=== PATIENT | female | born 1950 | race Caucasian/White ===

== ENCOUNTER 2021-09-19 07:50 | Inpatient (IN) | payer OTHER, SELFPAY ==
[~2021-09-19] VITALS: Ht 157.5 cm; Wt 59.0 kg
[2021-09-19 07:50] VITALS: BP_SYST 169
[2021-09-19] MEDS ORDERED: HYDROcodone/ACETAMIN 10-325 MG TAB PO ONE (08:00)
[2021-09-19] MEDS ORDERED: IPRATROPIUM BROM 0.5 MG/2.5 ML VIAL.NEB (ATROVENT) INH ONE (08:15)
[2021-09-19] MEDS ORDERED: ALBUTEROL SULFATE 0.083% 2.5 MG/3 ML VIAL.NEB INH ONE (08:15)
[2021-09-19 08:36] LABS: BASOPHILS % (AUTO) 0.6 % (0.0-2.0); EOSINOPHILS % (AUTO) 0.1 % (0.0-4.0); HEMOGLOBIN 13.8 g/dL (12.0-16.0); LYMPHOCYTES # (AUTO) 0.9 K/uL (1.0-5.5); LYMPHOCYTES % (AUTO) 12.1 % (20.5-51.5); MEAN CORPUSCULAR HEMOGLOBIN 35 pg (27-31); MEAN CORPUSCULAR HGB CONC 35 % (32-36); MEAN CORPUSCULAR VOLUME 100 fL (79.0-98.0); MONOCYTES # (AUTO) 0.7 K/uL (0.0-1.0); NEUTROPHILS # (AUTO) 5.8 K/uL (1.8-7.7); NEUTROPHILS % (AUTO) 77.2 % (40.0-70.0); PLATELET COUNT (AUTO) 147 K/uL (130-430); RED BLOOD CELL COUNT(AUTO) 4.01 MIL/uL (4.2-6.2); RED CELL DISTRIBUTION WIDTH 15.2 % (9.0-15.0); WHITE BLOOD COUNT (AUTO) 7.5 K/uL (4.8-10.8)
[2021-09-19 08:48] LABS: ANION GAP 14 (5-15); CALCIUM 8.4 mg/dL (8.4-11.0); CHLORIDE 88 mmol/L (98-107); CREATININE 0.61 mg/dL (0.55-1.30); GLUCOSE 89 mg/dL (70-99); POTASSIUM 3.6 mmol/L (3.5-5.1); SODIUM SERUM 123 mmol/L (136-145); UREA NITROGEN, BLOOD 10 mg/dL (8-21)
[2021-09-19 08:50] LABS: INR 0.9 (0.8-1.2); PROTHROMBIN TIME 9.6 SECS (9.5-12.5)
[2021-09-19 08:52] LABS: ALANINE AMINOTRANSFERASE 79 U/L (12-78); ALBUMIN 3.7 g/dL (3.4-4.8); AMYLASE 35 U/L (0-100); ASPARTATE AMINOTRANSFERASE 80 U/L (10-37); C-REACTIVE PROTEIN QUANT 9.3 mg/dL (0-0.5); LIPASE 315 U/L (73-393); TOTAL BILIRUBIN 1.2 mg/dL (0.0-1.0)
[2021-09-19] MEDS ORDERED: CLON0.5T4 PO (10:35)
[2021-09-19] MEDS ORDERED: GABA-529 PO (10:35)
[2021-09-19] MEDS ORDERED: NOR10 PO (10:35)
[2021-09-19 11:20] VITALS: BP_SYST 116
[2021-09-19] MEDS ORDERED: ACETAMINOPHEN 325 MG TABLET PO PRN ×2 (13:00→13:15)
[2021-09-19] MEDS ORDERED: HYDROcodone/ACETAMIN 5-325 MG TAB (NORCO/ VICODIN) PO PRN (13:00)
[2021-09-19] MEDS ORDERED: NALOXONE HCL 0.4 MG/ML AMP (NARCAN) IVP PRN ×2 (13:00)
[2021-09-19] MEDS ORDERED: ONDANSETRON HCL 4 MG/2 ML VIAL IVP PRN (13:00)
[2021-09-19] MEDS ORDERED: HYDROcodone/ACETAMIN 10-325 MG TAB PO PRN (13:00)
[2021-09-19] MEDS ORDERED: MULTIVITAMINS TAB 1 TABLET PO ONE (13:15)
[2021-09-19] MEDS ORDERED: THIAMINE HCL 100 MG TABLET PO ONE (13:15)
[2021-09-19] MEDS ORDERED: FOLIC ACID 1 MG TABLET PO ONE (13:15)
[2021-09-19] MEDS: LORazepam 2 MG/ML VIAL IVP PRN (13:25)
[2021-09-19] MEDS: NORMAL SALINE 5 ML DISP.SYRIN IVF SCH ×2 (13:26→21:47)
[2021-09-19] MEDS ORDERED: NORMAL SALINE 5 ML DISP.SYRIN IVF SCH (14:00)
[2021-09-19] MEDS: IPRATROPIUM/ALBUTEROL SULFATE 3 ML AMPUL.NEB (DUONEB) INH SCH ×3 (15:16→23:10)
[2021-09-19 16:37] VITALS: BP_SYST 130
[2021-09-19] MEDS: GABAPENTIN 100 MG CAPSULE PO SCH (21:46)
[2021-09-19] MEDS: clonazePAM 0.5 MG TABLET PO SCH (21:46)
[2021-09-19 21:52] VITALS: BP_SYST 123
[2021-09-20 01:40] VITALS: BP_SYST 127
[2021-09-20] MEDS: IPRATROPIUM/ALBUTEROL SULFATE 3 ML AMPUL.NEB (DUONEB) INH SCH ×4 (03:00→20:05)
[2021-09-20 03:54] VITALS: BP_SYST 111
[2021-09-20] MEDS: LORazepam 2 MG/ML VIAL IVP PRN ×2 (03:59→13:40)
[2021-09-20] MEDS: NORMAL SALINE 5 ML DISP.SYRIN IVF SCH ×3 (05:58→20:29)
[2021-09-20 06:58] LABS: BASOPHILS % (AUTO) 0.4 % (0.0-2.0); EOSINOPHILS % (AUTO) 0.3 % (0.0-4.0); HEMATOCRIT 37.1 % (36-48); LYMPHOCYTES # (AUTO) 1.1 K/uL (1.0-5.5); MEAN CORPUSCULAR HEMOGLOBIN 35 pg (27-31); MEAN CORPUSCULAR HGB CONC 35 % (32-36); MEAN CORPUSCULAR VOLUME 101 fL (79.0-98.0); MONOCYTES # (AUTO) 0.7 K/uL (0.0-1.0); MONOCYTES % (AUTO) 8.9 % (1.7-9.3); NEUTROPHILS # (AUTO) 5.9 K/uL (1.8-7.7); NEUTROPHILS % (AUTO) 76.4 % (40.0-70.0); PLATELET COUNT (AUTO) 152 K/uL (130-430); RED CELL DISTRIBUTION WIDTH 15.2 % (9.0-15.0); WHITE BLOOD COUNT (AUTO) 7.8 K/uL (4.8-10.8)
[2021-09-20 07:23] LABS: ALANINE AMINOTRANSFERASE 61 U/L (12-78); ALBUMIN 3.5 g/dL (3.4-4.8); ANION GAP 14 (5-15); ASPARTATE AMINOTRANSFERASE 53 U/L (10-37); CALCIUM 9.5 mg/dL (8.4-11.0); CHLORIDE 90 mmol/L (98-107); CREATININE 0.59 mg/dL (0.55-1.30); GLUCOSE 101 mg/dL (70-99); PHOSPHORUS 3.9 mg/dL (2.7-4.5); POTASSIUM 3.1 mmol/L (3.5-5.1); SODIUM SERUM 128 mmol/L (136-145); UREA NITROGEN, BLOOD 12 mg/dL (8-21)
[2021-09-20 08:30] VITALS: BP_SYST 101
[2021-09-20] MEDS: MULTIVITAMINS TAB 1 TABLET PO SCH (09:17)
[2021-09-20] MEDS: FOLIC ACID 1 MG TABLET PO SCH (09:17)
[2021-09-20] MEDS: THIAMINE HCL 100 MG TABLET PO SCH (09:18)
[2021-09-20] MEDS: amLODIPine BESYLATE 10 MG TABLET PO SCH (09:18)
[2021-09-20] MEDS: clonazePAM 0.5 MG TABLET PO SCH ×2 (09:18→20:28)
[2021-09-20 11:28] VITALS: BP_SYST 120
[2021-09-20] MEDS ORDERED: POTASSIUM CHLORIDE 20 MEQ TAB.PRT.SR PO ONE (13:45)
[2021-09-20] MEDS: D5NS 1,000 ML IV SCH ×2 (16:36→23:45)
[2021-09-20 16:45] VITALS: BP_SYST 122
[2021-09-20 20:00] VITALS: BP_SYST 116
[2021-09-20] MEDS: GABAPENTIN 100 MG CAPSULE PO SCH (20:28)
[2021-09-20] MEDS ORDERED: MORPHINE 2 MG/ML INJ. SYRINGE IVP PRN (22:00)
[2021-09-21] VITALS: BP_SYST 120
[2021-09-21] MEDS: IPRATROPIUM/ALBUTEROL SULFATE 3 ML AMPUL.NEB (DUONEB) INH SCH ×7 (00:39→23:52)
[2021-09-21] MEDS: LORazepam 2 MG/ML VIAL IVP PRN ×2 (02:55→16:47)
[2021-09-21] MEDS: NORMAL SALINE 5 ML DISP.SYRIN IVF SCH ×3 (04:57→20:13)
[2021-09-21 06:31] LABS: ANION GAP 12 (5-15); CALCIUM 8.6 mg/dL (8.4-11.0); CHLORIDE 95 mmol/L (98-107); CREATININE 0.56 mg/dL (0.55-1.30); GLUCOSE 115 mg/dL (70-99); POTASSIUM 3.2 mmol/L (3.5-5.1); SODIUM SERUM 131 mmol/L (136-145); UREA NITROGEN, BLOOD 7 mg/dL (8-21)
[2021-09-21 06:36] LABS: BASOPHILS % (AUTO) 0.5 % (0.0-2.0); EOSINOPHILS # (AUTO) 0.1 K/uL (0.0-0.4); EOSINOPHILS % (AUTO) 0.9 % (0.0-4.0); HEMATOCRIT 33.8 % (36-48); HEMOGLOBIN 11.7 g/dL (12.0-16.0); LYMPHOCYTES # (AUTO) 0.9 K/uL (1.0-5.5); LYMPHOCYTES % (AUTO) 10.2 % (20.5-51.5); MEAN CORPUSCULAR HEMOGLOBIN 35 pg (27-31); MEAN CORPUSCULAR HGB CONC 35 % (32-36); MEAN CORPUSCULAR VOLUME 101 fL (79.0-98.0); MONOCYTES % (AUTO) 11.8 % (1.7-9.3); NEUTROPHILS # (AUTO) 6.5 K/uL (1.8-7.7); NEUTROPHILS % (AUTO) 76.6 % (40.0-70.0); PLATELET COUNT (AUTO) 176 K/uL (130-430); RED BLOOD CELL COUNT(AUTO) 3.37 MIL/uL (4.2-6.2); RED CELL DISTRIBUTION WIDTH 14.8 % (9.0-15.0); WHITE BLOOD COUNT (AUTO) 8.4 K/uL (4.8-10.8)
[2021-09-21] MEDS: amLODIPine BESYLATE 10 MG TABLET PO SCH (08:12)
[2021-09-21] MEDS: MULTIVITAMINS TAB 1 TABLET PO SCH (08:12)
[2021-09-21] MEDS: THIAMINE HCL 100 MG TABLET PO SCH (08:12)
[2021-09-21] MEDS: clonazePAM 0.5 MG TABLET PO SCH ×2 (08:12→20:12)
[2021-09-21] MEDS: FOLIC ACID 1 MG TABLET PO SCH (08:13)
[2021-09-21 08:54] VITALS: BP_SYST 121
[2021-09-21 11:50] VITALS: BP_SYST 108
[2021-09-21] MEDS: D5NS 1,000 ML IV SCH ×2 (14:14→19:45)
[2021-09-21] MEDS ORDERED: MULT400T13 PO (15:54)
[2021-09-21] MEDS ORDERED: Thiamine Hcl PO (15:54)
[2021-09-21 16:58] VITALS: BP_SYST 123
[2021-09-21 20:00] VITALS: BP_SYST 120; BP_SYST 148
[2021-09-21] MEDS: GABAPENTIN 100 MG CAPSULE PO SCH (20:12)
[2021-09-22] VITALS (7 sets, daily range): BP systolic 113–131
[2021-09-22] MEDS: IPRATROPIUM/ALBUTEROL SULFATE 3 ML AMPUL.NEB (DUONEB) INH SCH ×6 (03:00→22:45)
[2021-09-22] MEDS: NORMAL SALINE 5 ML DISP.SYRIN IVF SCH ×3 (06:09→21:21)
[2021-09-22] MEDS: D5NS 1,000 ML IV SCH ×2 (06:09→16:27)
[2021-09-22 07:50] LABS: BASOPHILS % (AUTO) 0.5 % (0.0-2.0); EOSINOPHILS # (AUTO) 0.2 K/uL (0.0-0.4); EOSINOPHILS % (AUTO) 2.2 % (0.0-4.0); HEMATOCRIT 32.6 % (36-48); HEMOGLOBIN 11.3 g/dL (12.0-16.0); LYMPHOCYTES % (AUTO) 14.5 % (20.5-51.5); MEAN CORPUSCULAR HEMOGLOBIN 35 pg (27-31); MEAN CORPUSCULAR HGB CONC 35 % (32-36); MEAN CORPUSCULAR VOLUME 102 fL (79.0-98.0); MONOCYTES # (AUTO) 0.9 K/uL (0.0-1.0); MONOCYTES % (AUTO) 12.9 % (1.7-9.3); NEUTROPHILS % (AUTO) 69.9 % (40.0-70.0); PLATELET COUNT (AUTO) 196 K/uL (130-430); RED CELL DISTRIBUTION WIDTH 14.7 % (9.0-15.0); WHITE BLOOD COUNT (AUTO) 7.2 K/uL (4.8-10.8)
[2021-09-22] MEDS: clonazePAM 0.5 MG TABLET PO SCH ×2 (08:08→21:21)
[2021-09-22] MEDS: FOLIC ACID 1 MG TABLET PO SCH (08:08)
[2021-09-22] MEDS: THIAMINE HCL 100 MG TABLET PO SCH (08:08)
[2021-09-22] MEDS: amLODIPine BESYLATE 10 MG TABLET PO SCH (08:09)
[2021-09-22] MEDS: MULTIVITAMINS TAB 1 TABLET PO SCH (08:09)
[2021-09-22 08:28] LABS: ALANINE AMINOTRANSFERASE 47 U/L (12-78); ALBUMIN 2.9 g/dL (3.4-4.8); ANION GAP 12 (5-15); ASPARTATE AMINOTRANSFERASE 34 U/L (10-37); CALCIUM 8.5 mg/dL (8.4-11.0); CHLORIDE 103 mmol/L (98-107); GLUCOSE 111 mg/dL (70-99); SODIUM SERUM 137 mmol/L (136-145); TOTAL BILIRUBIN 0.8 mg/dL (0.0-1.0); UREA NITROGEN, BLOOD 4 mg/dL (8-21)
[2021-09-22] MEDS ORDERED: methylPREDNISolone SOD SUCC 40 MG/ML VIAL IVP ONE (08:45)
[2021-09-22] MEDS: BUDESONIDE 0.5 MG/2 ML AMPUL.NEB INH SCH ×2 (09:00→19:40)
[2021-09-22 09:59] LABS: POTASSIUM 2.7 mmol/L (3.5-5.1)
[2021-09-22] MEDS ORDERED: POTASSIUM CHLORIDE 20 MEQ TAB.PRT.SR PO ONE (10:30)
[2021-09-22] MEDS: methylPREDNISolone SOD SUCC 40 MG/ML VIAL IVP SCH ×2 (13:21→18:11)
[2021-09-22] MEDS: LORazepam 2 MG/ML VIAL IVP PRN (16:21)
[2021-09-22] MEDS: GABAPENTIN 100 MG CAPSULE PO SCH (21:20)
[2021-09-23] VITALS: BP_SYST 145
[2021-09-23] MEDS: D5NS 1,000 ML IV SCH ×3 (02:51→20:58)
[2021-09-23] MEDS: methylPREDNISolone SOD SUCC 40 MG/ML VIAL IVP SCH ×5 (02:51→23:25)
[2021-09-23] MEDS: IPRATROPIUM/ALBUTEROL SULFATE 3 ML AMPUL.NEB (DUONEB) INH SCH ×6 (03:00→23:56)
[2021-09-23] MEDS: NORMAL SALINE 5 ML DISP.SYRIN IVF SCH ×3 (05:51→20:58)
[2021-09-23] MEDS: LORazepam 2 MG/ML VIAL IVP PRN ×3 (05:52→20:58)
[2021-09-23 06:19] LABS: BASOPHILS % (AUTO) 0.2 % (0.0-2.0); HEMATOCRIT 31.5 % (36-48); HEMOGLOBIN 10.9 g/dL (12.0-16.0); LYMPHOCYTES # (AUTO) 0.4 K/uL (1.0-5.5); LYMPHOCYTES % (AUTO) 4.2 % (20.5-51.5); MEAN CORPUSCULAR HEMOGLOBIN 35 pg (27-31); MEAN CORPUSCULAR HGB CONC 35 % (32-36); MEAN CORPUSCULAR VOLUME 102 fL (79.0-98.0); MONOCYTES # (AUTO) 0.8 K/uL (0.0-1.0); MONOCYTES % (AUTO) 7.9 % (1.7-9.3); NEUTROPHILS # (AUTO) 9.2 K/uL (1.8-7.7); NEUTROPHILS % (AUTO) 87.7 % (40.0-70.0); PLATELET COUNT (AUTO) 232 K/uL (130-430); RED CELL DISTRIBUTION WIDTH 14.6 % (9.0-15.0); WHITE BLOOD COUNT (AUTO) 10.4 K/uL (4.8-10.8)
[2021-09-23 06:37] LABS: ALANINE AMINOTRANSFERASE 51 U/L (12-78); ALBUMIN 2.8 g/dL (3.4-4.8); ANION GAP 12 (5-15); ASPARTATE AMINOTRANSFERASE 31 U/L (10-37); C-REACTIVE PROTEIN QUANT 4.7 mg/dL (0-0.5); CALCIUM 8.1 mg/dL (8.4-11.0); CHLORIDE 102 mmol/L (98-107); CREATININE 0.56 mg/dL (0.55-1.30); GLUCOSE 183 mg/dL (70-99); POTASSIUM 3.2 mmol/L (3.5-5.1); SODIUM SERUM 135 mmol/L (136-145); TOTAL BILIRUBIN 0.5 mg/dL (0.0-1.0); UREA NITROGEN, BLOOD 5 mg/dL (8-21)
[2021-09-23] MEDS: BUDESONIDE 0.5 MG/2 ML AMPUL.NEB INH SCH ×2 (07:10→20:05)
[2021-09-23 08:25] VITALS: BP_SYST 125
[2021-09-23] MEDS: clonazePAM 0.5 MG TABLET PO SCH ×2 (08:55→20:58)
[2021-09-23] MEDS: FOLIC ACID 1 MG TABLET PO SCH (08:56)
[2021-09-23] MEDS: amLODIPine BESYLATE 10 MG TABLET PO SCH (08:56)
[2021-09-23] MEDS: THIAMINE HCL 100 MG TABLET PO SCH (08:56)
[2021-09-23] MEDS: MULTIVITAMINS TAB 1 TABLET PO SCH (08:57)
[2021-09-23] MEDS: LEVOFLOXACIN IN DEXTROSE 5 % 100 ML IV SCH (08:57)
[2021-09-23 11:02] LABS: ERYTHROCYTE SEDIMENTATION RATE 36 MM/HR (0-20)
[2021-09-23 13:01] VITALS: BP_SYST 137
[2021-09-23 16:40] VITALS: BP_SYST 127
[2021-09-23] MEDS ORDERED: PRED20TA PO (17:45)
[2021-09-23] MEDS ORDERED: LEVO500T89 PO (17:45)
[2021-09-23 20:00] VITALS: BP_SYST 122
[2021-09-23] MEDS: GABAPENTIN 100 MG CAPSULE PO SCH (20:58)
[2021-09-24 00:51] VITALS: BP_SYST 127
[2021-09-24] MEDS: IPRATROPIUM/ALBUTEROL SULFATE 3 ML AMPUL.NEB (DUONEB) INH SCH ×3 (03:00→11:48)
[2021-09-24] MEDS: methylPREDNISolone SOD SUCC 40 MG/ML VIAL IVP SCH ×2 (05:58→11:50)
[2021-09-24] MEDS: D5NS 1,000 ML IV SCH (05:59)
[2021-09-24] MEDS: NORMAL SALINE 5 ML DISP.SYRIN IVF SCH (05:59)
[2021-09-24 06:16] LABS: BASOPHILS % (AUTO) 0.1 % (0.0-2.0); EOSINOPHILS % (AUTO) 0.1 % (0.0-4.0); HEMATOCRIT 32.9 % (36-48); HEMOGLOBIN 11.1 g/dL (12.0-16.0); LYMPHOCYTES # (AUTO) 0.4 K/uL (1.0-5.5); MEAN CORPUSCULAR HEMOGLOBIN 35 pg (27-31); MEAN CORPUSCULAR HGB CONC 34 % (32-36); MEAN CORPUSCULAR VOLUME 103 fL (79.0-98.0); MONOCYTES # (AUTO) 0.7 K/uL (0.0-1.0); MONOCYTES % (AUTO) 6.2 % (1.7-9.3); NEUTROPHILS # (AUTO) 9.4 K/uL (1.8-7.7); NEUTROPHILS % (AUTO) 89.6 % (40.0-70.0); PLATELET COUNT (AUTO) 296 K/uL (130-430); RED CELL DISTRIBUTION WIDTH 14.9 % (9.0-15.0); WHITE BLOOD COUNT (AUTO) 10.5 K/uL (4.8-10.8)
[2021-09-24] MEDS: BUDESONIDE 0.5 MG/2 ML AMPUL.NEB INH SCH (07:22)
[2021-09-24 08:00] VITALS: BP_SYST 132
[2021-09-24 08:13] LABS: ALANINE AMINOTRANSFERASE 47 U/L (12-78); ALBUMIN 2.8 g/dL (3.4-4.8); ANION GAP 14 (5-15); ASPARTATE AMINOTRANSFERASE 29 U/L (10-37); CHLORIDE 103 mmol/L (98-107); CREATININE 0.52 mg/dL (0.55-1.30); GLUCOSE 174 mg/dL (70-99); POTASSIUM 3.4 mmol/L (3.5-5.1); SODIUM SERUM 138 mmol/L (136-145); TOTAL BILIRUBIN 0.3 mg/dL (0.0-1.0); UREA NITROGEN, BLOOD 8 mg/dL (8-21)
[2021-09-24] MEDS: FOLIC ACID 1 MG TABLET PO SCH (08:23)
[2021-09-24] MEDS: LEVOFLOXACIN IN DEXTROSE 5 % 100 ML IV SCH (08:23)
[2021-09-24] MEDS: THIAMINE HCL 100 MG TABLET PO SCH (08:24)
[2021-09-24] MEDS: amLODIPine BESYLATE 10 MG TABLET PO SCH (08:24)
[2021-09-24] MEDS: MULTIVITAMINS TAB 1 TABLET PO SCH (08:24)
[2021-09-24] MEDS: clonazePAM 0.5 MG TABLET PO SCH (08:24)
[2021-09-24] MEDS ORDERED: FUROSEMIDE 40 MG/4 ML VIAL IVP ONE (10:30)
[2021-09-24] MEDS: LORazepam 2 MG/ML VIAL IVP PRN (11:50)
[2021-09-24 12:00] VITALS: BP_SYST 127
[2021-09-24 14:00] VITALS: BP_SYST 127
[2021-09-24] MEDS ORDERED: NORMAL SALINE 5 ML DISP.SYRIN IVF SCH (14:00)
[2021-09-24] MEDS ORDERED: POTASSIUM CHLORIDE 20 MEQ TAB.PRT.SR PO ONE (14:30)
[2021-09-24] MEDS ORDERED: FUROSEMIDE 40 MG/4 ML VIAL IVP SCH (21:00)
== END 2021-09-24 15:00 | disposition home health service (06) | DRG 199 ==
LOC: SED 07:50 → STU 09:45
PROVIDERS: ADMIT Preventive Medicine Preventive Medicine/Occupational Environmental Medicine; ATTEND Preventive Medicine Preventive Medicine/Occupational Environmental Medicine
DX: J93.83 Other pneumothorax (principal); J96.00 Acute respiratory failure, unspecified whether with hypoxia or hypercapnia; E43 Unspecified severe protein-calorie malnutrition; J44.1 Chronic obstructive pulmonary disease with (acute) exacerbation; E87.1 Hypo-osmolality and hyponatremia; F32.A Depression, unspecified; I10 Essential (primary) hypertension; F41.0 Panic disorder [episodic paroxysmal anxiety]; E80.6 Other disorders of bilirubin metabolism; R74.01 Elevation of levels of liver transaminase levels; F10.10 Alcohol abuse, uncomplicated; Y90.9 Presence of alcohol in blood, level not specified; E83.51 Hypocalcemia; E83.52 Hypercalcemia; E87.6 Hypokalemia; D64.9 Anemia, unspecified; J44.9 Chronic obstructive pulmonary disease, unspecified; Z20.822 Contact with and (suspected) exposure to COVID-19; Z90.710 Acquired absence of both cervix and uterus; Z72.0 Tobacco use
CPT/HCPCS: 36415; 71045; 71250-TC; 76376; 80048; 80053; 82150; 83605; 83690; 83735; 84100; 84484; 85025; 85610-TC; 85651-TC; 85730-TC; 86140; 94640; 94760; 99285; G0378; J1030; J1940; J1956; J2060; J7613; J7626

== ENCOUNTER 2021-10-11 17:19 | Emergency (ER) | payer OTHER, SELFPAY ==
[~2021-10-11] VITALS: Ht 152.4 cm; Wt 56.7 kg
[~2021-10-11 17:19] MED LIST: CLON0.5T4 PO; GABA-529 PO; LEVO500T89 PO; MULT400T13 PO; NOR10 PO; PRED20TA PO; Thiamine Hcl PO
--- NOTE | 2021-10-11 17:25 | NUR ---
Pt triaged and placed in waiting room
[2021-10-11 17:29] VITALS: BP_SYST 126
--- NOTE | 2021-10-11 19:21 | NUR ---
BLOOD BEING DRAWN BY MANAGER DOCUMENTATION
--- NOTE | 2021-10-11 19:40 | NUR ---
DR REESE CALLED PT IN TRIAGE ROOM FOR EVALUATION, PT NOT IN WAITING ROOM
[2021-10-11 19:46] LABS: EOSINOPHILS # (AUTO) 0.1 K/uL (0.0-0.4)
--- NOTE | 2021-10-11 19:48 | NUR ---
CALLED FOR ROOM ASSIGNMENT AND PT NOT IN WAITING ROOM
[2021-10-11 19:56] LABS: ANION GAP 20 (5-15); CALCIUM 9.7 mg/dL (8.4-11.0); CHLORIDE 100 mmol/L (98-107); CREATININE 0.73 mg/dL (0.55-1.30); GLUCOSE 89 mg/dL (70-99); POTASSIUM 4.4 mmol/L (3.5-5.1); SODIUM SERUM 135 mmol/L (136-145); UREA NITROGEN, BLOOD 5 mg/dL (8-21)
--- NOTE | 2021-10-11 19:57 | NUR ---
PT NOT IN WAITING ROOM, PT LWBS
[2021-10-11 20:04] LABS: ALANINE AMINOTRANSFERASE 69 U/L (12-78); ALBUMIN 3.8 g/dL (3.4-4.8); ASPARTATE AMINOTRANSFERASE 71 U/L (10-37); TOTAL BILIRUBIN 0.6 mg/dL (0.0-1.0)
[2021-10-11 20:13] LABS: MONOCYTES # (AUTO) 0.6 K/uL (0.0-1.0)
[2021-10-11 20:17] LABS: BASOPHILS # (AUTO) 0.1 K/uL (0.0-0.2); BASOPHILS % (AUTO) 0.7 % (0.0-2.0); EOSINOPHILS % (AUTO) 0.9 % (0.0-4.0); HEMATOCRIT 37.7 % (36-48); HEMOGLOBIN 13.2 g/dL (12.0-16.0); LYMPHOCYTES # (AUTO) 1.1 K/uL (1.0-5.5); MEAN CORPUSCULAR HEMOGLOBIN 35 pg (27-31); MEAN CORPUSCULAR HGB CONC 35 % (32-36); MEAN CORPUSCULAR VOLUME 99 fL (79.0-98.0); MONOCYTES % (AUTO) 7.3 % (1.7-9.3); NEUTROPHILS # (AUTO) 5.8 K/uL (1.8-7.7); NEUTROPHILS % (AUTO) 76.1 % (40.0-70.0); PLATELET COUNT (AUTO) 209 K/uL (130-430); RED CELL DISTRIBUTION WIDTH 15.4 % (9.0-15.0); WHITE BLOOD COUNT (AUTO) 7.6 K/uL (4.8-10.8)
== END 2021-10-11 19:57 | disposition left against medical advice (07) ==
LOC: SED 17:19
DX: R06.02 Shortness of breath (principal); Z53.21 Procedure and treatment not carried out due to patient leaving prior to being seen by health care provider
CPT/HCPCS: 36415; 80053; 84484; 85025